=== PATIENT | male | born 1990 | race Asian ===

== ENCOUNTER 2017-11-30 13:40 | Emergency (ER) | payer MEDICAID, OTHER ==
[~2017-11-30] VITALS: Ht 160 cm; Wt 60.6 kg
[2017-11-30 13:41] VITALS: BP 110/78
[2017-11-30] MEDS ORDERED: METHOCARBAMOL 750 MG TABLET PO ONE (15:00)
[2017-11-30] MEDS ORDERED: KETOROLAC 30 MG/1 ML IM ONE (15:00)
[2017-11-30] MEDS ORDERED: METHOCARBAMOL 750 MG TABLET ONE (15:04)
[2017-11-30] MEDS ORDERED: KETOROLAC 30 MG/1 ML ONE (15:04)
== END 2017-11-30 15:38 | disposition home or self-care (01) ==
LOC: ED 14:33
DX: S39.012A Strain of muscle, fascia and tendon of lower back, initial encounter (principal); F17.200 Nicotine dependence, unspecified, uncomplicated; X58.XXXA Exposure to other specified factors, initial encounter; Y93.89 Activity, other specified; Y99.8 Other external cause status; Y92.89 Other specified places as the place of occurrence of the external cause
CPT/HCPCS: 72072; 72110; 96372; 99284; J1885

== ENCOUNTER 2018-11-30 21:18 | Emergency (ER) | payer SELFPAY ==
[~2018-11-30] VITALS: Ht 157.5 cm; Wt 60.0 kg
[2018-11-30 21:21] VITALS: BP 128/88
[2018-11-30] MEDS ORDERED: LIDOCAINE 1%-EPI 1:100K, 20ML INFIL ONE (21:30)
[2018-11-30] MEDS ORDERED: DIPH,PERTUSS(ACELL),TET VAC/PF NC IM-VACC ONE (21:30)
[2018-11-30] MEDS ORDERED: HYDROcodone/APAP 5/325 TABLET PO ONE (21:30)
[2018-11-30] MEDS ORDERED: HYDROcodone/APAP 5/325 TABLET ONE (21:31)
[2018-11-30] MEDS ORDERED: LIDOCAINE 1%-EPI 1:100K, 20ML ONE (21:31)
[2018-11-30] MEDS ORDERED: DIPH,PERTUSS(ACELL),TET VAC/PF 0.5 ML IM-VACC ONE (21:32)
--- NOTE | 2018-11-30 21:44 | NUR ---
PT MEDICATED PER MAR FOR PAIN AND TDAP. PT ROOM SETUP FOR LAC REPAIR AT THIS TIME.
--- NOTE | 2018-11-30 21:47 | NUR ---
[facility]
[2018-11-30 22:05] LABS: BASOPHILS % (AUTO) 0 % (0-1); EOSINOPHILS # (AUTO) 0.01 x10^3/uL (0-0.4); EOSINOPHILS % (AUTO) 0 % (1-7); LYMPHOCYTES # (AUTO) 0.95 x10^3/uL (1-3.4); LYMPHOCYTES % (AUTO) 11 % (22-44); MD NO; MEAN CORPUSCULAR HEMOGLOBIN 34.8 pg (27.5-34.5); MEAN CORPUSCULAR HGB CONC 34.2 g/dL (33.2-36.2); MEAN CORPUSCULAR VOLUME 101.9 fL (81-97); MEAN PLATELET VOLUME 7.6 fL (7.4-10.4); MONOCYTES # (AUTO) 0.23 x10^3/uL (0.2-0.8); MONOCYTES % (AUTO) 3 % (2-9); NEUTROPHILS # (AUTO) 7.57 x10^3/uL (1.8-6.8); NEUTROPHILS % (AUTO) 86 % (42-75); PLATELET COUNT 249 x10^3/uL (130-400); RED BLOOD COUNT 4.61 x10^6/uL (4.38-5.82); RED CELL DISTRIBUTION WIDTH 14.6 % (9.4-14.8)
[2018-11-30 22:14] LABS: ANION GAP 8 mmol/L (5-15); CALCIUM 8.5 mg/dL (8.5-10.1); CHLORIDE 108 mmol/L (98-107); CREATININE 1.04 mg/dL (0.7-1.3)
--- NOTE | 2018-11-30 22:19 | NUR ---
PT WOUND CLEANED BY TECH. AWAITING ERP FOR PT DISPOSITION.
--- NOTE | 2018-11-30 22:54 | NUR ---
PT D/C WITH D/C SUMMARY AND SCRIPTS. PT VERBALIZES UNDERSTANDING OF HOME WOUND CARE AND F/U INSTRUCTIONS. PT FRIEND AT [facility] PT HOME. PT DENIES ANY OTHER NEEDS PERTAINING TO THIS VISIT. PT AMBULATES TO REGISTRATION DESK WITH STEADY GAIT FOR D/C HOME.
== END 2018-11-30 23:04 | disposition home or self-care (01) ==
LOC: ED 22:58
DX: S06.0X0A Concussion without loss of consciousness, initial encounter (principal); S01.01XA Laceration without foreign body of scalp, initial encounter; Y08.89XA Assault by other specified means, initial encounter; Y93.89 Activity, other specified; Y92.009 Unspecified place in unspecified non-institutional (private) residence as the place of occurrence of the external cause; Y99.8 Other external cause status
CPT/HCPCS: 12001; 36415; 70450; 70486; 72125; 80048; 82040; 85025; 90471; 90715

== ENCOUNTER 2018-12-02 13:44 | Emergency (ER) | payer SELFPAY ==
[~2018-12-02] VITALS: Ht 160 cm; Wt 56.1 kg
[2018-12-02 13:46] VITALS: BP 113/68
[2018-12-02] MEDS ORDERED: KETOROLAC 30 MG/1 ML IM ONE (14:00)
[2018-12-02] MEDS ORDERED: ACETAMINOPHEN 500 MG TABLET PO ONE (14:00)
[2018-12-02] MEDS ORDERED: ACETAMINOPHEN 500 MG TABLET ONE (14:13)
[2018-12-02] MEDS ORDERED: KETOROLAC 60 MG/2 ML ONE (14:13)
== END 2018-12-02 15:25 | disposition home or self-care (01) ==
LOC: ED 14:10
DX: S06.0X0A Concussion without loss of consciousness, initial encounter (principal); R51 Headache; R11.2 Nausea with vomiting, unspecified; X58.XXXA Exposure to other specified factors, initial encounter; Y93.89 Activity, other specified; Y92.89 Other specified places as the place of occurrence of the external cause; Y99.8 Other external cause status
CPT/HCPCS: 70450; 96372; 99284; J1885

== ENCOUNTER 2018-12-10 11:24 | Emergency (ER) | payer OTHER ==
[~2018-12-10] VITALS: Ht 154.9 cm; Wt 55.8 kg
[2018-12-10 11:34] VITALS: BP 116/81
== END 2018-12-10 12:00 | disposition home or self-care (01) ==
LOC: ED 11:33
DX: S01.01XD Laceration without foreign body of scalp, subsequent encounter (principal); F17.200 Nicotine dependence, unspecified, uncomplicated; X58.XXXD Exposure to other specified factors, subsequent encounter
CPT/HCPCS: 99281